=== PATIENT | male | born 1950 | race Caucasian/White ===

== ENCOUNTER 2016-10-26 10:35 | Inpatient (IN) | payer BC ==
[2016-10-21 12:56] LABS: HEMATOCRIT 43.9 % (40.0-51.0); HEMOGLOBIN 14.3 g/dL (13.6-17.8)
[2016-10-21 13:09] LABS: BUN (BLOOD UREA NITROGEN) 27 MG/DL (6-23); CALCIUM, SERUM 9.4 MG/DL (8.5-10.4); CHLORIDE, SERUM 108 MMOL/L (96-112); CO2 (CARBON DIOXIDE) 28 MMOL/L (24-34); CREATININE 1.58 MG/DL (0.70-1.30); GFR AFRICAN AMERICAN 53 ML/MIN (>=60); GFR NON AFRICAN AMERICAN 46 ML/MIN (>=60); GLUCOSE, SERUM 130 MG/DL (60-99); POTASSIUM, SERUM 3.6 MMOL/L (3.5-5.3); SODIUM, SERUM 143 MMOL/L (135-148)
[2016-10-21 13:21] LABS: ASCORBIC ACID (UR NOT ORDER) NEG (NEG); BILIRUBIN, URINE NEGATIVE (NEG); KETONE, URINE NEGATIVE (NEG); LEUKOCYTE ESTERASE(NOT OR NEG (NEG); WBC (NOT ORDERED) (RFLEX) 2 (0-5)
--- NOTE | ~2016-10-26 | OP ---
Record Of Operation [facility] [address] [place]. [address] NAME: KATHERINE WALLS : 54 STATUS : ADM IN PAT#: [id number] AGE: 66 ADM/REG DATE : 10/26/16 MR#: [id number] REPORT SERV DATE: 10/27/16 DICTATED BY: MARKY LUO JR. DATE: 10/26/16 REPORT STATUS : Draft TRANSCRIBED BY: MODL DATE: 10/26/16 DATE OF PROCEDURE: 10/26/2016 SURGEON: Marky Luo M.D. PREOPERATIVE DIAGNOSES: Right renal mass, stage T1; right adrenal mass; and hyperaldosteronism. POSTOPERATIVE DIAGNOSES: Right renal mass, stage T1; right adrenal mass; and hyperaldosteronism. PROCEDURE PERFORMED: Laparoscopic right adrenalectomy and laparoscopic right partial nephrectomy. COMPLICATIONS: None. CONSULTATIONS: None. ANESTHESIA: General with an endotracheal tube. SPECIMENS: Right adrenal, right partial nephrectomy. DRAINS: A 15-Iranian KILO drain. ESTIMATED BLOOD LOSS: 50 mL. INDICATION: Mr. Walls is a 66-year-old gentleman, who has a history of incidentally found adrenal mass on the right side, 8 to 9 mm in size as well as a 15 x 18 mm right renal mass, which appears solid on CT scan imaging. He was being worked up for hyperaldosteronism and the feeling is that this lesion in his right adrenal gland may be an aldosteronoma. He is on multiple blood pressure medications that would require stopping those medications in order to work him up for hyperaldosteronism. I spoke with Dr. Yefri Colo about this case and the feeling was that removing the adrenal gland may take care of the hyperaldosteronism if this is an aldosterone secreting adrenal mass. Since he was going to have a partial nephrectomy anyway, this was felt to be the best course of action, and the patient and family agreed the adrenal mass will be removed at the same time as partial nephrectomy. PROCEDURE IN DETAIL: After the patient was identified and proper informed consent was obtained, he was taken to the operating room. General anesthesia was performed without complication using an endotracheal tube. He was then prepped and draped in normal sterile fashion in the modified thoracoabdominal position with the right side up and the arm protected on an armrest. He was properly padded and secured to the table. We then made an umbilical incision through the midline of the umbilicus and incised through an old hernia repair. There were no mesh present, just Prolene appearing type sutures. I then entered the abdominal cavity using a blunt trocar, 15 mm in size. Laparoscopic examination of the abdominal cavity then revealed a fairly normal-appearing abdomen. He did not have any Record Of Operation [address] [place]. [address] NAME: KATHERINE WALLS : 54 STATUS : ADM IN PAT#: [id number] AGE: 66 ADM/REG DATE : 10/26/16 MR#: [id number] REPORT SERV DATE: 10/27/16 DICTATED BY: MARKY LUO JR. DATE: 10/26/16 REPORT STATUS : Draft TRANSCRIBED BY: JOEL DATE: 10/26/16 adhesions to speak of. His gallbladder and liver edge appeared normal. The colon was in its normal position. I then placed two other 15 mm trocars, one just to the right of the falciform ligament, the other in the right lower quadrant. I then placed a 5 mm trocar at the costophrenic angle. I then began by mobilizing the hepatic flexure of the right colon by incising the renal colic ligaments and reflecting the colon and its mesentery inferiorly and medially to expose the duodenal. The duodenum was Kocherized medially to expose the vena cava. I then placed a Meri-Flex retractor to lift the liver off the anterior surface of the kidney and then dissected out the vena cava from the portion just below the liver all the way down to the gonadal vessels, identifying the renal vein and the adrenal vein along the way. Once I had accomplished this, I then dissected out the renal hilum. He had a trifurcated renal vein along with two separate renal arteries, one smaller accessory renal artery that came up around the renal vein and pierced into the kidney between the trifurcated renal vein. This was dissected out without difficulties. He then had a main renal artery that was somewhat posterior to the superior trunk of the trifurcated renal vein. This was more of an issue with dissection, I could not reach this arterial supply from inferior to the hilum and had to dissect anterior and superior to the renal hilum, but eventually was able to dissect out that renal artery as well. Once I had the renal hilum dissected out, I was able to then ligate and transect the adrenal vein using a locking hemoclip next to the vena cava along with a separate regular hemoclip, and placed a second hemoclip on the adrenal side and transected the adrenal vein. I then used the Harmonic Scalpel and some other clips to ligate and transect the vascular supply from the diaphragm along the superior border of the adrenal gland and then dissected between the kidney and the adrenal using the Harmonic Scalpel until the adrenal gland had been completely freed up. I left the adrenal gland in situ after he had been completely dissected out away from the retroperitoneum. I then turned my attention to the kidney. I then identified the ureter and transected the Gerota's fascia lateral to the ureter and then mobilized the kidney posteriorly and laterally up to the superior pole and rotated the kidney over onto its anterior surface. I used the laparoscopic ultrasound with some difficulties identifying the tumor. This tumor was endophytic and somewhat difficult to identify, was not really in the lower pole, but more mid pole and very posterior. Once I was able to identify the tumor, I then opened Gerota's fascia more medial and reflected the Gerota's fascia off the kidney and surface of the tumor laterally. Once I had the tumor exposed, I then reperformed the ultrasound to terry the borders using electrocautery on the capsule. A 12.5 g of mannitol were then given IV and then 5-minute period of time was waited prior to clamping with bulldog clamps both renal arteries. I waited another 5 minutes and then began the excision of the tumor. The tumor was excised and placed in an endobag. I did notice on the cut surface of the kidney that the tumor was visible, but it did not appear that I had actually transected through the tumor itself, but I was concerned about margin in this area. Therefore, I took another full margin from the bed of the resection to make sure to get around to the tumor to have a negative margin. Frozen section margins were then performed and were found to be negative, but this does appear to be a small renal cell carcinoma. At that point, I also had removed the adrenal gland in the same endobag. Gross inspection of the adrenal gland was performed, but no frozen sections were done on the adrenal gland. I then closed the defect by using a 3-0 Vicryl suture in the central portion of the defect in a running fashion to close the collecting system and any larger blood vessels. Once that had been completed, I closed the capsule of the kidney using a pledgeted 2-0 Vicryl sutures. Once the capsule of the kidney had been brought together, I used the argon beam to coagulate Record Of Operation [facility] [address] [place]. [address] NAME: KATHERINE WALLS : 54 STATUS : ADM IN PAT#: [id number] AGE: 66 ADM/REG DATE : 10/26/16 MR#: [id number] REPORT SERV DATE: 10/27/16 DICTATED BY: MARKY LUO JR. DATE: 10/26/16 REPORT STATUS : Draft TRANSCRIBED BY: MODFabiola DATE: 10/26/16 the edges of the cortex. I then placed FloSeal in the defect and removed the bulldog clamps with a total ischemia time of 21 minutes. I then closed Gerota's fascia over the defect using 2-0 Vicryl sutures and placed the kidney back into its normal position and pexed the kidney in place by suturing the Gerota's fascia to the lateral abdominal fascia. I inspected the ureter as well as the renal hilum. I did not identify any abnormalities. It should be noted that at one point during the case during mobilization of the kidney there was an avulsion of a small blood vessel off the bifurcation of the vena cava and renal vein. I did suture this with a small [id number] suture of 4-0 Prolene and then stopped that bleeding without much difficulties. Once I was satisfied, the hemostasis was good. I then placed the KILO drain through the 5 mm trocar site, sutured in place with a 2-0 silk and then closed the incisions at the fascia level using a 0 looped PDS suture, and the skin incisions were closed using 4-0 Monocryl in a subcuticular fashion. The wounds were irrigated prior to closure as well. The patient was awakened in the operating room, transferred to the postanesthesia care in stable condition. SHONDA/JOEL Marky Luo Jr., M.D. / [id number] CC: Marky Luo Jr., M.D.
--- NOTE | ~2016-10-26 | DS ---
Discharge Summary [facility] [address] [place]. [address] NAME: KATHERINE WALLS : 54 STATUS : DIS IN PAT#: [id number] AGE: 66 ADM/REG DATE : 10/26/16 MR#: [id number] REPORT SERV DATE: 11/12/16 DICTATED BY: MARKY LUO JR. DATE: 11/12/16 REPORT STATUS : Draft TRANSCRIBED BY: JOEL DATE: 11/12/16 Data Collection from hospitalization DISCHARGE DIAGNOSES: 1. Right renal mass, stage T1. 2. Right adrenal mass. 3. Hyperaldosteronism. 4. Hypertension. 5. Neuropathy. 6. Myopia. 7. Presbyopia. 8. Hypercholesterolemia. 9. Hemorrhoids. CONSULTATIONS: Samina Rivero NP PROCEDURES PERFORMED: 1. Laparoscopic right adrenalectomy and laparoscopic right partial nephrectomy on 10/26/2016. 2. CT scan of the abdomen and pelvis without contrast on 10/30/2016. PATHOLOGY: Adrenal, right adrenalectomy - adrenocortical adenoma, clinically aldosterone producing. Kidney, right partial nephrectomy - renal cell carcinoma. Kidney, right revised partial nephrectomy - renal cell carcinoma cystic. MEDICATIONS: Norvasc 10 mg every evening, Edarbi 80 mg every evening, CoQ10 200 mg twice a day, Inspra 50 mg daily, TriCor 145 mg every evening, Dilaudid 2 mg every four hours as needed, Mag-Ox 400 mg every morning, Bystolic 20 mg every evening, niacin 1000 mg at bedtime, fish oil 1200 mg every morning, Zofran 4 mg every six hours, Klor-Con 10 mEq twice a day, Crestor 10 mg every day at bedtime, Flomax 0.4 mg every day at bedtime, and Qsymia 7.5 mg every morning as instructed. CONDITION AT DISCHARGE: Stable. DISPOSITION: The patient was discharged home on a regular diet with activities as instructed. He would follow up with me on 11/12/2016. He would follow up with his primary care provider as needed. HOSPITAL COURSE: This is a 66-year-old man who has a history of an incidentally found adrenal mass on the right side that was 8 to 9 mm incised as well as a 15 x 18 mm right renal mass, which appeared solid on CT scan imaging. He was being worked up for hyperaldosteronism and a feeling was that this lesion in the right adrenal gland may be an aldosteronoma. He is on multiple blood pressure medications that would require stopping those medications in order to work him up for hyperaldosteronism. I spoke with Dr. Yefri Cool about this case and the feeling was that removing the adrenal glands may take care of the hyperaldosteronism if this aldosterone secreting adrenal mass. Since he was going to undergo a partial nephrectomy anyway, this was felt to be the best course of action. The patient and his family agreed to proceed with removing the adrenal mass at the same time of Discharge Summary [address] [place]. [address] NAME: KATHERINE WALLS : 54 STATUS : DIS IN PAT#: [id number] AGE: 66 ADM/REG DATE : 10/26/16 MR#: [id number] REPORT SERV DATE: 11/12/16 DICTATED BY: MARKY LUO JR. DATE: 11/12/16 REPORT STATUS : Draft TRANSCRIBED BY: JOEL DATE: 11/12/16 the partial nephrectomy. Treatment options were discussed and it was elected to proceed with surgical intervention. He was admitted to the hospital for further evaluation and treatment. Upon admission, he was taken to the operating room where he underwent the above-mentioned procedure. He tolerated this well, and there were no complications. Postoperatively, he was seen by Samina Rivero regarding hyperaldosteronism and hypertension. Norvasc, Bystolic, and Edarbi were going to be continued. He was going to be placed on telemetry. At the present time, his blood pressure was controlled. Hydralazine would be given as needed. The patient is on niacin, Crestor, and Tricor for hypercholesterolemia and those were continued. Prior to surgery, creatinine level was 1.58. His a.m. dose at Inspra would be held. We would continue IV fluids for hydration. He has benign prostatic hyperplasia. He also has a history of elevated PSA level. Daily Flomax was continued. He was felt to have possible obstructive sleep apnea. He was on O2 at 3 liters with a saturation of 93%. We would continue with O2 saturation monitoring and keep his O2 at 92% or greater with oxygen use. He had received steroids during surgery. Cortisol level was going to be checked as well as TSH. On postop day #1, he had no new complaints. Creatinine was 1.96. His incisions were clean, dry, and intact. We encouraged him to mobilize. Pain was controlled. Blood pressure control was okay. ARB was held. He would be given hydralazine as needed. On 10/28/2016, he did complain of some gas pain. Neurontin was stopped. He felt this was making him groggy. The patient said he felt sore. Over the next couple of days, he continued to do well. It was felt that he could stop Edarbi at discharge, but continue Norvasc and Bystolic. Creatinine level was improving as expected. Drain output was minimal. The Bauer catheter was removed. He did have some mild abdominal distention. Zofran was increased, but he still had some nausea. On 10/30/2016, Edarbi was resumed. CT scan of the abdomen and pelvis without contrast was performed. On 10/31/2016, he felt somewhat better. He had less nausea. His diet was advanced to full liquids. Reglan was continued. Creatinine level was 1.04. The next day, discharge planning was performed. He still had some abdominal pain and nausea. He was ambulatory. He had no edema. He was changed to oral Reglan. Carafate was added. His diet was advanced. On 11/02/2016, he continued to do well. KILO drain was removed. Discharge instructions were given. Due to his improved and stable condition, he was discharged home with the above-stated instructions. Information collected by: Montserrat Dennis I submit the above information as my discharge summary. TG/MODL Marky Luo Jr., M.D. / [id number] CC: Marky Luo Jr., M.D. Discharge Summary [address] [address] NAME: KATHERINE WALLS : 54 STATUS : DIS IN PAT#: [id number] AGE: 66 ADM/REG DATE : 10/26/16 MR#: [id number] REPORT SERV DATE: 11/12/16 DICTATED BY: MARKY LUO JR. DATE: 11/12/16 REPORT STATUS : Draft TRANSCRIBED BY: MODL DATE: 11/12/16 Ashley Holcomb M.D.
--- NOTE | ~2016-10-26 | CN ---
Consultation Report [facility] [address] [place]. [address] NAME: KATHERINE WALLS : 54 STATUS : ADM IN PAT#: [id number] AGE: 66 ADM/REG DATE : 10/26/16 MR#: [id number] REPORT SERV DATE: 10/27/16 DICTATED BY: SAMINA CLEMENTE DATE: 10/27/16 REPORT STATUS : Draft TRANSCRIBED BY: MODL DATE: 10/27/16 CONSULTATION DATE OF CONSULTATION: 10/26/2016 REASON FOR CONSULTATION: Consulted for hyperaldosteronism and hypertension. IDENTIFYING DATA: 1. PCP: Dr. Ashley Holcomb. 2. Tailor Garment Fitter: Dr. Yefri Dejesus. 3. Orthopedist: Dr. Elgin Talbert. 4. Urologist: Dr. Marky Luo. HISTORY OF PRESENT ILLNESS: This is a pleasant 66-year-old male, who is admitted by Dr. Marky Luo Jr. for a right renal mass. He is presently status post laparoscopic partial right nephrectomy and right adrenalectomy on 10/26/2016. He has a history of high cholesterol, hypertension, polyp, elevated PSA as well as presently having a right renal mass. [facility] has been consulted to help manage after surgery for his hyperaldosteronism and high blood pressure. The patient's history was obtained through interview with the patient coupled with review of [employer] and [employer]. PAST MEDICAL HISTORY: 1. Myopia. 2. Presbyopia. 3. High cholesterol. 4. Hypertension. 5. Hemorrhoids. 6. Polyps. 7. Elevated PSA. 8. Neuropathy. HOME MEDICATIONS: 1. Norvasc 10 mg p.o. every evening. 2. Edarbi 80 mg p.o. every evening. 3. Coenzyme Q10 200 mg p.o. twice a day. 4. Inspra 50 mg p.o. daily. 5. TriCor 145 mg p.o. every evening. 6. Mag-Ox 400 mg p.o. every morning. 7. Bystolic 20 mg p.o. every evening. 8. Niacin 1000 mg p.o. at bedtime. 9. Altura-3 fatty acid 1200 mg p.o. every morning. 10.Potassium chloride 10 mEq p.o. twice a day. 11.Crestor 10 mg p.o. every day at bedtime. Consultation Report [facility] [id number] [place]. [address] NAME: KATHERINE WALLS : 54 STATUS : ADM IN [facility]#: [id number] AGE: 66 ADM/REG DATE : 10/26/16 MR#: [id number] REPORT SERV DATE: 10/27/16 DICTATED BY: SAMINA CLEMENTE DATE: 10/27/16 REPORT STATUS : Draft TRANSCRIBED BY: MODFabiola DATE: 10/27/16 12.Flomax 0.4 mg p.o. every day at bedtime. 13.Qsymia 3.75 mg p.o. every morning. ALLERGIES: 1. REGLAN. 2. HYDROCODONE. 3. STATINS, HE SAYS HE DOES NOT HAVE A TRUE ALLERGY, BUT IF HE TAKES SOME FOR ANY LENGTHY PERIOD OF TIME THAT MAKES HIM FEEL TIRED AND WEAK. SOCIAL HISTORY: The patient is and has three adopted children. He lives in a single-level home. No tobacco or illicit drug use. Alcohol is very rare, one to two drinks he has had, I think at the holidays last year. He is an ER nurse, who is still working. FAMILY HISTORY: Mother is positive for colon cancer. Father was positive for renal cell carcinoma, also a CVA and had pneumonia. Brother has gallbladder disease and is positive for hypertension. SURGICAL HISTORY: 1. Adenoidectomy and tonsillectomy. 2. Ventral hernia surgery in 2008. 3. [place] teeth removal. 4. Colonoscopy in 2011 and again in 2014. 5. Rotator cuff surgery in 2012. 6. Left shoulder surgery in 2013. 7. Right Achilles rupture with right ankle fracture on 12/2014. REVIEW OF SYSTEMS: Negative other than what is included in HPI. The patient complains of no shortness of breath. No nausea or vomiting. No abdominal pain. No chest pain. No fever. Displays no confusion or agitation. PHYSICAL EXAMINATION: VITAL SIGNS: From today, blood pressure is 131/79, heart rate is 84, respiratory rate is 16, O2 saturation is 93% on 3 L nasal cannula. GENERAL: The patient is a 66-year-old obese male, resting in bed. No acute distress. NEURO: His head is atraumatic, normocephalic. He is awakened for assessment and he is alert and oriented x3 but drowsy. Cranial nerves 2 through 12 are grossly intact. His mood is appropriate. NECK: Supple. Trachea is midline. No JVD noted. No obvious thyromegaly or lymphadenopathy. EENT: Sclerae are nonicteric. Pupils are equal and reactive to light. Nares are patent. Mucous membranes moist. Tongue midline without deviation. Soft palate rises equally with phonation. CHEST: No pain with palpation. Consultation Report [facility] [id number] [place]. [address] NAME: KATHERINE WALLS : 54 STATUS : ADM IN PAT#: [id number] AGE: 66 ADM/REG DATE : 10/26/16 MR#: [id number] REPORT SERV DATE: 10/27/16 DICTATED BY: SAMINA CLEMENTE DATE: 10/27/16 REPORT STATUS : Draft TRANSCRIBED BY: JOEL DATE: 10/27/16 LUNGS: Clear to auscultation bilaterally. The patient has normal respiratory effort. He has no increased work of breathing with conversation. CARDIOVASCULAR: S1, S2. No obvious murmurs, rubs, or gallops. He is on telemetry presently that is ordered. He displays a sinus rhythm with a rate of 85. ABDOMEN: Obese, soft, nontender, with active bowel sounds. No palpable organomegaly. His last bowel movement was 10/25/2016. EXTREMITIES: Normal distal pulses. No calf tenderness. No edema. The patient has bilateral TEDs and SCDs in place for DVT prophylaxis. SKIN: Warm and dry. No unusual rashes or lesions. Normal color and turgor. PSYCH: The patient is pleasant and cooperative. Appropriate mood and affect. SURGICAL WOUND SITE: Dressing clean, dry and intact. He does have a right KILO drain compressed with sanguinous drainage noted. LABORATORY DATA: Sodium 143, potassium 3.6, chloride 108, BUN 27, creatinine 1.58, GFR 53, glucose 130, calcium 9.4. Hemoglobin 14.4, hematocrit 43.9. On 10/21/2016, the patient's EKG showed normal sinus rhythm with an incomplete right bundle-branch block. An EKG is ordered for this a.m. on 10/27/2016, which is still pending. The chest x-ray is ordered for 10/27/2016, and still pending. ASSESSMENT AND PLAN: 1. The patient does have hypertension. We are aware. He has had elevated blood pressure and was noted to have a right renal mass for which he had an adrenalectomy. He was on several home medication. We did continue his Norvasc, Bystolic, Edarbi. We did place him on telemetry and presently, his blood pressure is controlled. He does have p.r.n. hydralazine as needed. 2. Hypercholesterolemia. Aware. The patient is on medication at home, which is niacin, Crestor, and TriCor and that will be continued. 3. Renal insufficiency. Noted that his creatinine is 1.58 prior to surgery. We will hold his a.m. dose Inspra. We will continue IV fluids for hydration. 4. Benign prostatic hyperplasia. Aware. He does have a high elevation history of an elevated PSA level. We will also continue his daily Flomax. 5. Possible obstructive sleep apnea. The gentleman is on O2 at 3 L with a sat of 93%. We will continue O2 saturation monitoring and keep his O2 at 92% or greater with oxygen use. 6. Labs to be obtained are CMP, magnesium, phosphorus, CBC in a.m., EKG, cortisols level, TSH, and a portable chest x-ray. The patient is postop from a partial right nephrectomy and right adrenalectomy. He did have steroids in surgery. The a.m. team will need to evaluate whether he will need to have steroids continued postoperatively. We are ordering a cortisol level this morning as well as a TSH. The patient's heart rate presently on telemetry is sinus rhythm with a controlled rate in the 80s. [facility] would like to thank you for this consultation. Please let us know if we could be of further assistance. Consultation Report [facility] [id number] [place]. [address] NAME: KATHERINE WALLS : 54 STATUS : ADM IN PAT#: [id number] AGE: 66 ADM/REG DATE : 10/26/16 MR#: [id number] REPORT SERV DATE: 10/27/16 DICTATED BY: SAMINA CLEMENTE DATE: 10/27/16 REPORT STATUS : Draft TRANSCRIBED BY: JOEL DATE: 10/27/16 /JOEL Samina Clemente NP / [id number] CC: Valentine Santo Jr., M.D.
[~2016-10-26 10:35] MED LIST: BYSTOLIC10 MG PO; CARDU4 PO; CO Q-10200 MG PO; CRESTOR10 PO; EDARBI80 MG PO; FISH OIL1200 MG PO; FLOMAX4 PO; INSPRA50 MG PO; KLOR-CON 1010 MEQ PO; MAGOX4 PO; NIACIN100 PO; NIACIN1000 MG PO; NORCO1 TA1 PO; NORV10 PO; QSYMIA; TRICOR145 PO; ZOFRAN4 PO; [UNRECOGNIZED DRUG - MIXTURE] PO; [UNRECOGNIZED DRUG - OTHER] PO
[2016-10-27 05:03] LABS: BASOPHILS 0 %; EOSINOPHILS 0 %; HEMOGLOBIN 11.9 g/dL (13.6-17.8); IMMATURE GRANULOCYTES 0.3 %; IMMATURE GRANULOCYTES ABSOLUTE 0.03 10/3/uL (0.0-0.11); LYMPHOCYTES 9.4 %; LYMPHOCYTES ABSOLUTE 1.08 10/3/uL (0.67-4.30); MEAN CORPUS HGB CONC 33.3 g/dL (32.0-36.0); MEAN CORPUSCULAR HEMOGLOB 30.5 pg (26.0-34.0); MEAN CORPUSCULAR VOLUME 91.5 fL (80-100); MEAN PLATELET VOLUME 10.6 fL (9.2-13.0); MONOCYTES 6.2 %; MONOCYTES ABSOLUTE 0.72 10/3/uL (0.21-1.20); NEUTROPHILS 84.1 %; PLATELET COUNT 253 10/3/uL (150-400); RBC DISTRIBUTION WIDTH 13.6 % (12.0-16.0); WHITE BLOOD CELLS 11.5 10/3/uL (4.5-10.5)
[2016-10-27 05:08] LABS: HEMATOCRIT 35.7 % (40.0-51.0); MANUAL DIFF NO %
[2016-10-27 05:23] LABS: BUN (BLOOD UREA NITROGEN) 24 MG/DL (6-23); CALCIUM, SERUM 8.5 MG/DL (8.5-10.4); CHLORIDE, SERUM 111 MMOL/L (96-112); CREATININE 1.94 MG/DL (0.70-1.30); GFR AFRICAN AMERICAN 41 ML/MIN (>=60); GFR NON AFRICAN AMERICAN 36 ML/MIN (>=60); GLUCOSE, SERUM 142 MG/DL (60-99); SODIUM, SERUM 144 MMOL/L (135-148)
[2016-10-27 05:24] LABS: A/G RATIO 1.4 (0.7-1.9); ALBUMIN 3.5 G/DL (3.5-5.0); ALKALINE PHOSPHATASE 49 U/L (45-117); BUN (BLOOD UREA NITROGEN) 24 MG/DL (6-23); CHLORIDE, SERUM 110 MMOL/L (96-112); CREATININE 1.96 MG/DL (0.70-1.30); GFR AFRICAN AMERICAN 41 ML/MIN (>=60); GFR NON AFRICAN AMERICAN 35 ML/MIN (>=60); GLOBULIN 2.5 G/DL (2.5-4.1); GLUCOSE, SERUM 142 MG/DL (60-99); PHOSPHORUS, SERUM 4.2 MG/DL (2.5-4.5); SGOT(AST) 76 U/L (5-40); SGPT(ALT) 65 U/L (5-65); SODIUM, SERUM 143 MMOL/L (135-148); TOTAL BILIRUBIN 0.3 MG/DL (0-1.2)
[2016-10-27 05:28] LABS: CALCIUM, SERUM 8.3 MG/DL (8.5-10.4); CO2 (CARBON DIOXIDE) 21 MMOL/L (24-34); POTASSIUM, SERUM 4.5 MMOL/L (3.5-5.3)
[2016-10-28 12:13] LABS: BASOPHILS 0.1 %; BASOPHILS ABSOLUTE 0.01 10/3/uL (0.0-0.16); EOSINOPHILS 0.1 %; EOSINOPHILS ABSOLUTE 0.01 10/3/uL (0.0-0.53); HEMATOCRIT 35.1 % (40.0-51.0); HEMOGLOBIN 11.4 g/dL (13.6-17.8); IMMATURE GRANULOCYTES 0.4 %; IMMATURE GRANULOCYTES ABSOLUTE 0.06 10/3/uL (0.0-0.11); LYMPHOCYTES 10.1 %; LYMPHOCYTES ABSOLUTE 1.45 10/3/uL (0.67-4.30); MEAN CORPUS HGB CONC 32.5 g/dL (32.0-36.0); MEAN CORPUSCULAR HEMOGLOB 29.7 pg (26.0-34.0); MEAN CORPUSCULAR VOLUME 91.4 fL (80-100); MEAN PLATELET VOLUME 10.4 fL (9.2-13.0); MONOCYTES ABSOLUTE 1.59 10/3/uL (0.21-1.20); NEUTROPHILS 78.3 %; NEUTROPHILS ABSOLUTE 11.27 10/3/uL (2.02-8.40); PLATELET COUNT 222 10/3/uL (150-400); RBC DISTRIBUTION WIDTH 14.1 % (12.0-16.0); RED CELL COUNT 3.84 10/6/uL (4.7-6.1); WHITE BLOOD CELLS 14.4 10/3/uL (4.5-10.5)
[2016-10-28 12:14] LABS: MANUAL DIFF NO %
[2016-10-28 12:27] LABS: CALCIUM, SERUM 8.3 MG/DL (8.5-10.4); CHLORIDE, SERUM 110 MMOL/L (96-112); CO2 (CARBON DIOXIDE) 25 MMOL/L (24-34); CREATININE 1.69 MG/DL (0.70-1.30); GFR AFRICAN AMERICAN 49 ML/MIN (>=60); GFR NON AFRICAN AMERICAN 42 ML/MIN (>=60); GLUCOSE, SERUM 131 MG/DL (60-99); POTASSIUM, SERUM 4.3 MMOL/L (3.5-5.3); SODIUM, SERUM 141 MMOL/L (135-148)
[2016-10-28 12:28] LABS: BUN (BLOOD UREA NITROGEN) 19 MG/DL (6-23)
[2016-10-28 19:00] LABS: ASCORBIC ACID (UR NOT ORDER) NEG (NEG); BILIRUBIN, URINE NEGATIVE (NEG); KETONE, URINE NEGATIVE (NEG); LEUKOCYTE ESTERASE(NOT OR TRACE (NEG); WBC (NOT ORDERED) (RFLEX) 5 (0-5)
[2016-10-29 06:51] LABS: BASOPHILS 0.1 %; BASOPHILS ABSOLUTE 0.01 10/3/uL (0.0-0.16); EOSINOPHILS 0.3 %; EOSINOPHILS ABSOLUTE 0.04 10/3/uL (0.0-0.53); HEMATOCRIT 32.9 % (40.0-51.0); HEMOGLOBIN 10.8 g/dL (13.6-17.8); IMMATURE GRANULOCYTES 0.3 %; IMMATURE GRANULOCYTES ABSOLUTE 0.04 10/3/uL (0.0-0.11); LYMPHOCYTES 11.8 %; LYMPHOCYTES ABSOLUTE 1.49 10/3/uL (0.67-4.30); MEAN CORPUS HGB CONC 32.8 g/dL (32.0-36.0); MEAN CORPUSCULAR HEMOGLOB 30.2 pg (26.0-34.0); MEAN CORPUSCULAR VOLUME 91.9 fL (80-100); MEAN PLATELET VOLUME 10.6 fL (9.2-13.0); MONOCYTES 12.4 %; MONOCYTES ABSOLUTE 1.56 10/3/uL (0.21-1.20); NEUTROPHILS 75.1 %; NEUTROPHILS ABSOLUTE 9.45 10/3/uL (2.02-8.40); PLATELET COUNT 201 10/3/uL (150-400); RBC DISTRIBUTION WIDTH 13.8 % (12.0-16.0); RED CELL COUNT 3.58 10/6/uL (4.7-6.1); WHITE BLOOD CELLS 12.6 10/3/uL (4.5-10.5)
[2016-10-29 06:52] LABS: MANUAL DIFF NO %
[2016-10-29 07:11] LABS: A/G RATIO 0.9 (0.7-1.9); ALBUMIN 2.8 G/DL (3.5-5.0); ALKALINE PHOSPHATASE 53 U/L (45-117); CALCIUM, SERUM 8.6 MG/DL (8.5-10.4); CHLORIDE, SERUM 110 MMOL/L (96-112); CO2 (CARBON DIOXIDE) 23 MMOL/L (24-34); CREATININE 1.37 MG/DL (0.70-1.30); GFR AFRICAN AMERICAN 63 ML/MIN (>=60); GFR NON AFRICAN AMERICAN 54 ML/MIN (>=60); GLUCOSE, SERUM 127 MG/DL (60-99); POTASSIUM, SERUM 3.9 MMOL/L (3.5-5.3); SGOT(AST) 41 U/L (5-40); SGPT(ALT) 62 U/L (5-65); SODIUM, SERUM 141 MMOL/L (135-148); TOTAL BILIRUBIN 0.6 MG/DL (0-1.2); TOTAL PROTEIN 5.8 G/DL (6.0-8.5)
[2016-10-29 07:12] LABS: BUN (BLOOD UREA NITROGEN) 14 MG/DL (6-23)
[2016-10-30 09:23] LABS: BASOPHILS 0.2 %; BASOPHILS ABSOLUTE 0.02 10/3/uL (0.0-0.16); EOSINOPHILS 1.6 %; EOSINOPHILS ABSOLUTE 0.18 10/3/uL (0.0-0.53); HEMATOCRIT 33.5 % (40.0-51.0); HEMOGLOBIN 11.1 g/dL (13.6-17.8); IMMATURE GRANULOCYTES 0.4 %; IMMATURE GRANULOCYTES ABSOLUTE 0.04 10/3/uL (0.0-0.11); LYMPHOCYTES 15.3 %; LYMPHOCYTES ABSOLUTE 1.67 10/3/uL (0.67-4.30); MEAN CORPUS HGB CONC 33.1 g/dL (32.0-36.0); MEAN CORPUSCULAR HEMOGLOB 29.8 pg (26.0-34.0); MEAN CORPUSCULAR VOLUME 90.1 fL (80-100); MEAN PLATELET VOLUME 10.2 fL (9.2-13.0); MONOCYTES 7.8 %; MONOCYTES ABSOLUTE 0.85 10/3/uL (0.21-1.20); NEUTROPHILS 74.7 %; NEUTROPHILS ABSOLUTE 8.18 10/3/uL (2.02-8.40); PLATELET COUNT 251 10/3/uL (150-400); RBC DISTRIBUTION WIDTH 13.5 % (12.0-16.0); RED CELL COUNT 3.72 10/6/uL (4.7-6.1); WHITE BLOOD CELLS 10.9 10/3/uL (4.5-10.5)
[2016-10-30 09:26] LABS: MANUAL DIFF NO %
[2016-10-30 09:36] LABS: BUN (BLOOD UREA NITROGEN) 14 MG/DL (6-23); CALCIUM, SERUM 8.3 MG/DL (8.5-10.4); CHLORIDE, SERUM 107 MMOL/L (96-112); CO2 (CARBON DIOXIDE) 26 MMOL/L (24-34); CREATININE 1.32 MG/DL (0.70-1.30); GFR AFRICAN AMERICAN 66 ML/MIN (>=60); GFR NON AFRICAN AMERICAN 57 ML/MIN (>=60); GLUCOSE, SERUM 137 MG/DL (60-99); POTASSIUM, SERUM 3.7 MMOL/L (3.5-5.3); SODIUM, SERUM 138 MMOL/L (135-148)
[2016-10-31 05:49] LABS: BASOPHILS 0.2 %; BASOPHILS ABSOLUTE 0.02 10/3/uL (0.0-0.16); EOSINOPHILS 3.2 %; EOSINOPHILS ABSOLUTE 0.32 10/3/uL (0.0-0.53); HEMATOCRIT 34.4 % (40.0-51.0); HEMOGLOBIN 11.5 g/dL (13.6-17.8); IMMATURE GRANULOCYTES 0.9 %; IMMATURE GRANULOCYTES ABSOLUTE 0.09 10/3/uL (0.0-0.11); LYMPHOCYTES 19.9 %; LYMPHOCYTES ABSOLUTE 2.02 10/3/uL (0.67-4.30); MEAN CORPUS HGB CONC 33.4 g/dL (32.0-36.0); MEAN CORPUSCULAR HEMOGLOB 29.9 pg (26.0-34.0); MEAN CORPUSCULAR VOLUME 89.6 fL (80-100); MEAN PLATELET VOLUME 10.1 fL (9.2-13.0); MONOCYTES ABSOLUTE 0.81 10/3/uL (0.21-1.20); NEUTROPHILS 67.8 %; NEUTROPHILS ABSOLUTE 6.89 10/3/uL (2.02-8.40); PLATELET COUNT 268 10/3/uL (150-400); RBC DISTRIBUTION WIDTH 13.4 % (12.0-16.0); RED CELL COUNT 3.84 10/6/uL (4.7-6.1); WHITE BLOOD CELLS 10.2 10/3/uL (4.5-10.5)
[2016-10-31 05:50] LABS: MANUAL DIFF NO %
[2016-10-31 06:01] LABS: BUN (BLOOD UREA NITROGEN) 11 MG/DL (6-23); CHLORIDE, SERUM 109 MMOL/L (96-112); CREATININE 1.04 MG/DL (0.70-1.30); GFR AFRICAN AMERICAN 88 ML/MIN (>=60); GFR NON AFRICAN AMERICAN 76 ML/MIN (>=60); GLUCOSE, SERUM 125 MG/DL (60-99); POTASSIUM, SERUM 3.8 MMOL/L (3.5-5.3); SODIUM, SERUM 139 MMOL/L (135-148)
[2016-10-31 06:16] LABS: CO2 (CARBON DIOXIDE) 21 MMOL/L (24-34)
[2016-11-02] MEDS ORDERED: DIL2TAB PO (09:01)
[2016-11-02] MEDS ORDERED: ZOFRAN4 PO (09:01)
== END 2016-11-02 11:53 | disposition home or self-care (01) | DRG 614 ==
LOC: SDC/OF 10:35 → 4SO 21:39
PROVIDERS: Nurse Practitioner Family; Urology
PROC: 0GT34ZZ Resection of Right Adrenal Gland, Percutaneous Endoscopic Approach (ICD-10-PCS; principal; 2016-10-26 12:45)
PROC: 0TB04ZZ Excision of Right Kidney, Percutaneous Endoscopic Approach (ICD-10-PCS; 2016-10-26 12:45)
DX: D44.11 Neoplasm of uncertain behavior of right adrenal gland (principal); N17.9 Acute kidney failure, unspecified; D41.01 Neoplasm of uncertain behavior of right kidney; G62.9 Polyneuropathy, unspecified; E66.9 Obesity, unspecified; E26.9 Hyperaldosteronism, unspecified; E78.00 Pure hypercholesterolemia, unspecified; N40.0 Benign prostatic hyperplasia without lower urinary tract symptoms; G47.33 Obstructive sleep apnea (adult) (pediatric); Z79.899 Other long term (current) drug therapy; Z88.8 Allergy status to other drugs, medicaments and biological substances; Z88.5 Allergy status to narcotic agent; Z86.010 Personal history of colon polyps; H52.10 Myopia, unspecified eye; H52.4 Presbyopia; Z68.32 Body mass index [BMI] 32.0-32.9, adult; M19.90 Unspecified osteoarthritis, unspecified site; I12.9 Hypertensive chronic kidney disease with stage 1 through stage 4 chronic kidney disease, or unspecified chronic kidney disease; N18.9 Chronic kidney disease, unspecified; E87.6 Hypokalemia
CPT/HCPCS: 36415; 71010; 74176; 80048; 80053; 81001; 82533; 82570; 83605; 83735; 84100; 85014; 85018; 85025; 86850; 86900; 86901; 87040; 87493; 87493-59; 88307; 88331; 88332; 93005; 94660; A9270-GY; C1713; J0690; J0694; J2150; J2250; J2270; J2370; J2405; J2550; J2710; J2765; J2795; J3010; P9045

== ENCOUNTER 2016-11-13 13:30 | Emergency (ER) | payer BC ==
[2016-11-13 12:29] LABS: BASOPHILS 0.3 %; BASOPHILS ABSOLUTE 0.03 10/3/uL (0.0-0.16); EOSINOPHILS 0.8 %; EOSINOPHILS ABSOLUTE 0.08 10/3/uL (0.0-0.53); ER CBC TAT 0 Hrs 05 Mins; HEMATOCRIT 35.7 % (40.0-51.0); HEMOGLOBIN 11.8 g/dL (13.6-17.8); IMMATURE GRANULOCYTES 0.6 %; IMMATURE GRANULOCYTES ABSOLUTE 0.06 10/3/uL (0.0-0.11); LYMPHOCYTES 13.2 %; LYMPHOCYTES ABSOLUTE 1.25 10/3/uL (0.67-4.30); MEAN CORPUS HGB CONC 33.1 g/dL (32.0-36.0); MEAN CORPUSCULAR HEMOGLOB 29.6 pg (26.0-34.0); MEAN CORPUSCULAR VOLUME 89.5 fL (80-100); MEAN PLATELET VOLUME 9.7 fL (9.2-13.0); MONOCYTES 3.2 %; NEUTROPHILS 81.9 %; NEUTROPHILS ABSOLUTE 7.78 10/3/uL (2.02-8.40); RBC DISTRIBUTION WIDTH 13.9 % (12.0-16.0); RED CELL COUNT 3.99 10/6/uL (4.7-6.1); WHITE BLOOD CELLS 9.5 10/3/uL (4.5-10.5)
[2016-11-13 12:30] LABS: MANUAL DIFF NO %; PLATELET COUNT 403 10/3/uL (150-400)
[2016-11-13 12:45] LABS: ALBUMIN 3.5 G/DL (3.5-5.0); ALKALINE PHOSPHATASE 85 U/L (45-117); BUN (BLOOD UREA NITROGEN) 29 MG/DL (6-23); CALCIUM, SERUM 9.2 MG/DL (8.5-10.4); CHLORIDE, SERUM 105 MMOL/L (96-112); CO2 (CARBON DIOXIDE) 23 MMOL/L (24-34); CREATININE 2.01 MG/DL (0.70-1.30); GFR AFRICAN AMERICAN 39 ML/MIN (>=60); GFR NON AFRICAN AMERICAN 34 ML/MIN (>=60); GLOBULIN 3.4 G/DL (2.5-4.1); GLUCOSE, SERUM 103 MG/DL (60-99); SGOT(AST) 22 U/L (5-40); SGPT(ALT) 33 U/L (5-65); SODIUM, SERUM 137 MMOL/L (135-148); TOTAL BILIRUBIN 1.2 MG/DL (0-1.2); TOTAL PROTEIN 6.9 G/DL (6.0-8.5)
[~2016-11-13 13:30] MED LIST changes: +DIL2TAB PO
[2016-11-13 13:34] LABS: ASCORBIC ACID (UR NOT ORDER) NEG (NEG); BILIRUBIN, URINE NEGATIVE (NEG); ER URINALYSIS TAT 0 Hrs 14 Mins; KETONE, URINE NEGATIVE (NEG); LEUKOCYTE ESTERASE(NOT OR NEG (NEG); NITRITE (URINE) NEG (NEG); WBC (NOT ORDERED) (RFLEX) 3 (0-5)
== END 2016-11-13 14:30 | disposition home or self-care (01) ==
LOC: ER 13:30
PROVIDERS: Emergency Medicine
DX: G89.18 Other acute postprocedural pain (principal); R10.11 Right upper quadrant pain; E86.0 Dehydration; I10 Essential (primary) hypertension; Z88.5 Allergy status to narcotic agent; Z88.8 Allergy status to other drugs, medicaments and biological substances; Z79.899 Other long term (current) drug therapy
CPT/HCPCS: 74176; 76705; 80053; 81001; 83690; 84703; 85025; 93005; 96361; 96374; 99285; J2405